=== PATIENT | female | born 1950 | race Caucasian/White ===

== ENCOUNTER 2017-11-08 05:20 | Day surgery (SDC) | payer OTHER ==
[~2017-11-08] VITALS: Ht 167.6 cm; Wt 66.2 kg
[~2017-11-08 05:20] MED LIST: ASPIRIN81 M2 PO; BACLOFEN20 MG PO; CALCIUM 500 MG1 EACH PO; LATANOPROST2.5 ML BOTH EYES; MULTIPLE VITAM1 EACH PO; TYLENOL EXTRA500 MG PO
[2017-11-08 06:03] LABS: APPEARANCE CLOUDY ((CLEAR)); BILIRUBIN NEGATIVE; BLOOD SMALL; COLOR YELLOW ((YELLOW)); GLUCOSE (STRIP) NEGATIVE; KETONES NEGATIVE; LEUKOCYTES LARGE; NITRITE NEGATIVE; PROTEIN (STRIP) NEGATIVE; SPECIFIC GRAVITY 1.018 (1.000-1.030); UROBILINOGEN 0.2 MG/DL (0.2-1.0)
[2017-11-08 06:09] LABS: BACTERIA NONE SEEN /HPF; EPITHELIAL CELLS NONE SEEN /HPF; MUCUS NONE SEEN /LPF; RED BLOOD CELLS 0-5 /HPF (0-5); WHITE BLOOD CELLS 0-5 /HPF (0-5)
[2017-11-08 06:41] VITALS: BP 148/81
[2017-11-08 06:44] LABS: BASOPHIL (%) 0.6 % (0-1); BASOPHIL COUNT 0.1 K/uL (0-0.1); EOSINOPHIL (%) 1.1 % (0-5); EOSINOPHIL COUNT 0.1 K/uL (0-0.3); HEMATOCRIT 38.8 % (36.0-46.0); HEMOGLOBIN 13.3 G/DL (11.9-15.5); IMMATURE GRANULOCYTE (%) 0.2 % (0.0-0.7); LYMPHOCYTE (%) 18.1 % (15-42); LYMPHOCYTE COUNT 1.5 K/uL (1.0-2.8); MCH 32.6 PG (29.0-34.0); MCHC 34.3 G/DL (30.0-36.0); MCV 95.1 FL (83-99); MONOCYTE (%) 5.6 % (3-12); MONOCYTE COUNT 0.5 K/uL (0-0.8); NEUTROPHIL (%) 74.4 % (45-76); NEUTROPHIL COUNT 6.4 K/uL (1.8-6.4); PLATELET COUNT 209 K/uL (156-360); RBC DIS.WIDTH-CV 12.1 % (11.8-14.6); RBC DIS.WIDTH-SD 41.5 % (39-53); RED BLOOD COUNT 4.08 M/uL (3.80-5.20); WHITE BLOOD COUNT 8.5 K/uL (4.1-10.2)
[2017-11-08 06:58] LABS: CHLORIDE 108 MEQ/L (99-109); CREATININE 0.9 MG/DL (0.6-1.3); GFR ESTIMATE (CALCULATED) > 59 mL/min/; GLUCOSE 107 mg/dL (70-99); POTASSIUM 3.9 MEQ/L (3.7-5.4); SODIUM 141 MEQ/L (136-147); UREA NITROGEN (BUN) 28 mg/dL (9-23)
[2017-11-08 13:30] VITALS: BP 134/77
[2017-11-08 16:02] VITALS: BP 121/67
[2017-11-08 20:41] VITALS: BP 131/71
[2017-11-09 00:40] VITALS: BP 113/56
[2017-11-09 04:39] VITALS: BP 127/60
[2017-11-09 06:26] LABS: HEMATOCRIT 31.9 % (36.0-46.0); MCH 31.8 PG (29.0-34.0); MCHC 33.5 G/DL (30.0-36.0); MCV 94.9 FL (83-99); PLATELET COUNT 178 K/uL (156-360); RBC DIS.WIDTH-CV 12.1 % (11.8-14.6); RBC DIS.WIDTH-SD 42.3 % (39-53); RED BLOOD COUNT 3.36 M/uL (3.80-5.20); WHITE BLOOD COUNT 10.8 K/uL (4.1-10.2)
[2017-11-09 06:27] LABS: HEMOGLOBIN 10.7 G/DL (11.9-15.5)
[2017-11-09 08:01] VITALS: BP 131/67
[2017-11-09 11:26] VITALS: BP 129/66
[2017-11-09] MEDS ORDERED: TYLENOL EXTRA500 MG PO (12:44)
[2017-11-09] MEDS ORDERED: DOCUSATE SODIU100 MG PO (12:44)
[2017-11-09] MEDS ORDERED: IBUPROFEN800 MG PO (12:45)
[2017-11-09] MEDS ORDERED: MACRODANTIN100 MG PO (12:58)
== END 2017-11-09 14:13 | disposition home or self-care (01) ==
LOC: SDC 05:20 → 2SOUTH 10:30 → ENRESERV 10:41 → 2EAST 13:26 → SDC 13:36 → 2EAST 11-09 14:13
PROVIDERS: Obstetrics & Gynecology
PROC: 0UT97ZZ Resection of Uterus, Via Natural or Artificial Opening (ICD-10-PCS; principal; 2017-11-08)
PROC: 0TJB8ZZ Inspection of Bladder, Via Natural or Artificial Opening Endoscopic (ICD-10-PCS; principal; 2017-11-08)
PROC: 0JQC0ZZ Repair Pelvic Region Subcutaneous Tissue and Fascia, Open Approach (ICD-10-PCS; principal; 2017-11-08)
DX: N81.2 Incomplete uterovaginal prolapse (principal); N84.1 Polyp of cervix uteri; N84.0 Polyp of corpus uteri; N80.0 Endometriosis of uterus; D25.9 Leiomyoma of uterus, unspecified; N87.9 Dysplasia of cervix uteri, unspecified
CPT/HCPCS: 80048; 81003; 85025; 85027; 86850; 86900; 86901; 88307; C1758; C1769; G0378; J0131; J0690; J1100; J1885; J2250; J2405; J3010; J7120